=== PATIENT | male | born 1985 | race Caucasian/White ===

== ENCOUNTER 2025-02-20 11:53 | Emergency (ER) | payer OTHER, SELFPAY ==
[2025-02-20 11:54] VITALS: BMI 33.4
--- NOTE | 2025-02-20 12:30 | XR_ITS ---
Examination: CT brain head without contrast. 2-D sagittal coronal reconstructions Date and time of exam: February 20, 2025, 1252 hours INDICATIONS: Hit in the head with a pipe wrench today CTDI: vol (mGy): 54.5 DLP: (mGycm): 1108 Technique: Multiple CT axial sections of the brain have been obtained, 5 mm slice thickness. Contrast has not been administered. 2-D sagittal, coronal reconstructions have been obtained Low dose protocols were performed. One or more of the following dose reduction techniques were used; automated exposure control, adjustment of the mA and/or KV according to patient size, use of iterative reconstruction technique. Findings: No significant ventricular enlargement. Intra-axial or extra-axial hemorrhage density is not seen. No mass effect or midline shift Basal cisterns are not remarkable. Fourth ventricle is midline. Cranial vault intact. Impression: Negative for acute hemorrhage, mass effect or midline shift
--- NOTE | 2025-02-20 12:30 | XR_ITS ---
Examination: CT maxillofacial, without intravenous contrast. 2-D sagittal reconstructions. 3-D reconstructions. Date and time of exam: February 20, 2025, 1252 hours INDICATIONS: Patient hit in the face with a pipe wrench today with nose pain and facial pain CTDI: vol (mGy): 42.3 DLP: (mGycm): 896 Technique: Multiple axial images of maxillofacial region, 3.0 mm slice thickness. 2-D sagittal and coronal reconstructions. 3-D reconstructions. Low dose protocols were performed. One or more of the following dose reduction techniques were used; automated exposure control, adjustment of the mA and/or KV according to patient size, use of iterative reconstruction technique. Findings: Frontal bones frontal sinuses intact Orbital rims appear intact No nasal bone fracture No depression zygomatic arches Pterygoid plates maxilla and the mandible intact IMPRESSION: No acute facial fracture.
[2025-02-20 12:31] VITALS: BP 141/89; PULSE 91; RESP 18; TEMP 36.5; O2SAT 97
--- NOTE | 2025-02-20 13:37 | PD.EDHEAD ---
ED Head Injury RME/HPI General Chief complaint: Head Injury Stated complaint: took a pipe wrench to the face Time Seen by Provider: 02/20/25 12:29 Arrival date/time: 02/20/25 11:53 39-year-old male presents emergency department today stating was working today and accidentally hit himself in the face with a wrench patient obtained a laceration to his face Limitations: no limitations Related Data Allergies Allergy/AdvReac Type Severity Reaction Status Date / Time No Known Allergies Allergy Verified 02/20/25 11:55 Review of Systems Review of Systems Systems Reviewed: All systems reviewed, normal except as documented Constitutional Constitutional: Reports system reviewed and no additional complaints, except as documented, Denies fever(s) and Denies headache(s) Eyes Eyes: Reports system reviewed and no additional complaints, except as documented and Denies blurry vision ENT Ears, Nose, Mouth, and Throat: Reports system reviewed and no additional complaints, except as documented, Denies headache(s), Denies nasal congestion and Denies nasal discharge Cardiovascular Cardiovascular: Reports system reviewed and no additional complaints, except as documented, Denies chest pain and Denies dyspnea Respiratory Respiratory: Reports system reviewed and no additional complaints, except as documented, Denies chest congestion, Denies cough and Denies dyspnea Gastrointestinal Gastrointestinal: Reports system reviewed and no additional complaints, except as documented and Denies abdominal pain Integumentary/Breasts Skin/Breast: Reports system reviewed and no additional complaints, except as documented, Denies rash and Reports wounds (laceration facial) Neurologic Neurologic: Reports system reviewed and no additional complaints, except as documented, Reports as per HPI and Denies headache(s) Past Medical History Social History SMOKING STATUS: Never smoker ED Exam General Limitations: Present no limitations General appearance: Present alert and in no apparent distress Head Head exam: Present atraumatic Expanded Head Exam Head exam physical: Present contusion and hematoma Head image:  1. laceration facial Eye Eye exam: Present normal appearance, PERRL and EOMI ENT ENT exam: Present normal exam, normal oropharynx and mucous membranes moist Neck Neck exam: Present normal inspection, full ROM and trachea midline Chest Chest inspection: Present normal inspection and symmetric chest wall rise Respiratory Respiratory exam: Present normal lung sounds bilaterally Cardiovascular Cardiovascular exam: Present regular rate, normal rhythm and normal heart sounds Abdominal Exam Abdominal exam: Present soft and normal bowel sounds Extremities Exam Extremities exam: Present normal inspection and full ROM Back Exam Back exam: Present normal inspection and full ROM Neurological Exam Neurological exam: Present alert, oriented X3 and CN II-XII intact Psychiatric Psychiatric exam: Present normal affect and normal mood Skin Skin exam: Present warm, dry, intact and normal color Course Quality Measures none Orders Category Date Time Status CT facial bones wo con Stat Exams 02/20/25 12:[address] head/brain wo con Stat Exams 02/20/25 12:30 Completed Vital Signs Vital signs: Vital Signs Temperature 97.7 F 02/20/25 12:31 Pulse Rate 91 02/20/25 12:31 Respiratory Rate 18 02/20/25 12:31 Blood Pressure 141/89 H 02/20/25 12:31 Pulse Oximetry (%) 97 02/20/25 12:31 Oxygen Delivery Method Room Air 02/20/25 12:31 o2 sat 97% r.a wnl PROCEDURES: Laceration Laceration 1: Site: face Size (cm): 3 Description: linear Depth: simple, single layer Local Anesthetic: lidocaine 1% Amount of anesthesia used (mL): 8 Pre-repair: wound explored and irrigated extensively Skin layer closed with: nylon Suture size (cm): 5-0 Number of sutures: 7 Technique: simple, interrupted Head Injury MDM Narrative MDM Narrative:: 39-year-old male presents emergency department today stating was working today and accidentally hit himself in the face with a wrench patient obtained a laceration to his face On exam patient has facial laceration CT scan of the facial bones as well as CT of the head obtained no acute emergent findings noted no acute fractures no bleeding Wound irrigated copiously laceration pair with total of 7 sutures wound is well-approximated with no active bleeding Patient declined Tdap Patient instructed have sutures removed in 7 to 8 days Patient discharged home no distress follow-up with Workmen's Compensation doctor for worsening symptoms or concerns to return immediately Patient data External records reviewed:: [facility] previous records Clinical information provided by:: patient Social determinants that could affect healthcare access:: none Patient has the following chronic illnesses:: none How is presenting disease/condition affected by chronic disease/condition?: no chronic disease Evaluation data The following diagnostics were reviewed and interpreted by me:: radiology exam(s) Lab and/or radiology exams considered but not ordered:: radiology obtained Interpretation Summary: reviewed by me Medications / Prescriptions Medications or Prescriptions considered but not ordered:: Given Medication administrations:: Given Consultations Consultation(s) initiated? (list below): No Diagnosis Differential diagnosis head injury: concussion without loss of consciousness, epidural hematoma, subdural hematoma and concussion with loss of consciousness Most likely diagnosis given after review of the tests above:: Laceration facial Admission Indicated Admission indicated?: not indicated Admission Request Was there a request for admission?: No Disposition Plan Disposition Plan: Discharge Discharge Attestation Discharge Attestation: The patient and all family members were given an opportunity to ask questions and understood the discharge instructions. Discharge instructions specifically effects, indications for sooner follow up or return to the emergency department, and the expected course of current diagnosis. Patient condition: Stable Discharge Plan Plan Patient Disposition: HOME (Self Care) Discharge Disposition comment: Stable Prescriptions/Referrals Referrals: Caesar Castrejon MD [Primary Care Provider, Family Practice] - In 1 week Problem List Clinical Impression: Closed head injury, Facial laceration, Work related injury Patient/Caregiver Discharge Instructions Education Materials: ED Head Injury (Adult) Additional Instructions: Please follow up with your Workmen's Compensation provider in the next 24-48hrs for any worsening symptoms return here immediately Please have sutures removed in 7 days Print Language: [place] Stand Alone Forms: Anaid Award Info., Patient Portal Info Letter VIJAYA/GRANT Supervising Physician EWA Supervising Physician: Dr. Nolan
== END 2025-02-20 14:00 | disposition home or self-care (01) ==
PROVIDERS: Emergency Provider Nurse Practitioner Primary Care; PCP Family Medicine
DX: S01.81XA Laceration without foreign body of other part of head, initial encounter (principal); Y99.0 Civilian activity done for income or pay; W18.30XA Fall on same level, unspecified, initial encounter
CPT/HCPCS: 12013; 70450; 70486; 99283